=== PATIENT | female | born 1965 | race Caucasian/White ===

== ENCOUNTER 2016-10-02 11:12 | Emergency (ER) | payer SELFPAY ==
[~2016-10-02] VITALS: Ht 157.5 cm; Wt 52.0 kg
[2016-10-02 11:14] VITALS: BP 168/82; PULSE 73; RESP 20; TEMP 98.2; O2SAT 96
--- NOTE | 2016-10-02 12:18 | PD ---
HPI Chief Complaint: Medical Clearance Time Seen by Provider: 12:00 Travel History International Travel<30 days: No Contact w/Intl Traveler<30days: No Traveled to known affect area: No History of Present Illness HPI 51-year-old female presents emergency department for evaluation of right ear pain 1 week. Patient reports the pain is constant, nonradiating. No aggravating or alleviating factors. Symptoms severity mild. PFSH Past Medical History Medical History: Denies Significant Hx Diminished Hearing: No Tetanus Vaccination: > 5 Years Influenza Vaccination: No ?: Not Past Surgical History Surgical History: No Previous Surgery Social History Alcohol Use: Yes Tobacco Use: Yes (1/2PPD) Substance Use: Yes (Patient admits to substance abuse. ) Allergies-Medications (Allergen,Severity, Reaction): Coded Allergies: No Known Allergies (Verified , 10/02/16) Reported Meds & Prescriptions Reported Meds & Active Scripts Active Active Prescriptions or Reported Medications Unobtainable Review of Systems Except as stated in HPI: all other systems reviewed are Neg HENT: Positive: Earache Physical Exam Narrative GENERAL: Well-nourished, well-developed patient. SKIN: Focused skin assessment warm/dry. HEAD: Normocephalic. EYES: No scleral icterus. No injection or drainage. EAR: Right TM erythema, bulging, loss of landmarks. No mastoid tenderness or overlying erythema. NECK: Supple, trachea midline. No JVD or lymphadenopathy. CARDIOVASCULAR: Regular rate and rhythm without murmurs, gallops, or rubs. RESPIRATORY: Breath sounds equal bilaterally. No accessory muscle use. GASTROINTESTINAL: Abdomen soft, non-tender, nondistended. MUSCULOSKELETAL: No cyanosis, or edema. BACK: Nontender without obvious deformity. No CVA tenderness. Data Data Last Documented VS Vital Signs Date Time Temp Pulse Resp B/P Pulse Ox O2 Delivery O2 Flow Rate FiO2 10/02/16 11:14 98.2 73 20 168/82 96 Room Air MDM Medical Decision Making Medical Screen Exam Complete: Yes Emergency Medical Condition: Yes Differential Diagnosis Otitis media, otitis externa, URI Narrative Course 51-year-old female with chief complaint of right ear pain 1 week. On physical exam patient has right TM erythema, bulging, loss of landmarks. Patient be treated with amoxicillin. Return precautions discussed. Patient verbalizes understanding and agrees to plan. Diagnosis Primary Impression: Otitis media Qualified Code: H66.91 - Right otitis media, unspecified chronicity, unspecified otitis media type Referrals: Primary Care Physician Additional Instructions: Take the antibiotics as prescribed. Take [id number]-[id number] Motrin [id number] milligrams every 6-8 hours as needed for pain. Follow-up with her primary care doctor. Scripts Unable to Obtain Active Prescriptions or Reported Meds Disposition: 01 DISCHARGE HOME Condition: Stable Mahi Diez Oct 02, 2016 12:18
[2016-10-02] MEDS ORDERED: AMOX500T PO (12:45)
== END 2016-10-02 13:24 | disposition home or self-care (01) ==
LOC: NEPK 11:12
DX: H66.91 Otitis media, unspecified, right ear (principal); F17.200 Nicotine dependence, unspecified, uncomplicated
CPT/HCPCS: 99283

== ENCOUNTER 2017-01-27 07:48 | Emergency (ER) | payer SELFPAY ==
[~2017-01-27] VITALS: Ht 154.9 cm; Wt 51.0 kg
[~2017-01-27 07:48] MED LIST: AMOX500T PO
[2017-01-27 07:49] VITALS: BP 145/75; PULSE 76; RESP 19; TEMP 98; O2SAT 96
--- NOTE | 2017-01-27 08:26 | PD ---
HPI . Cold symptoms Chief Complaint: GI Complaint Time Seen by Provider: 08:05 Travel History International Travel<30 days: No Contact w/Intl Traveler<30days: No Traveled to known affect area: No History of Present Illness HPI This patient presents with a chief complaint of cold symptoms. Onset was 2 days ago. She is complaining with congestion, cough and now vomiting and loose stools. She reports 3 total episodes of emesis. She states that she has had some bloody sputum. She has not been running a fever. She states that she has taken [id number] cold preparations and aspirin without relief of her symptoms. PFSH Past Medical History Hx Anticoagulant Therapy: No Cardiovascular Problems: No Chemotherapy: No Cerebrovascular Accident: No Diabetes: No Diminished Hearing: No Respiratory: No Tetanus Vaccination: > 5 Years Influenza Vaccination: No ?: Not Menopausal: Yes : 2 Past Surgical History Section: Yes (X 2) Gynecologic Surgery: Yes () Hysterectomy: No Social History Alcohol Use: Yes Tobacco Use: Yes (1/2PPD) Substance Use: Yes (Patient admits to substance abuse. ) Allergies-Medications (Allergen,Severity, Reaction): Coded Allergies: No Known Allergies (Verified Adverse Reaction, Unknown, 01/27/17) Reported Meds & Prescriptions Reported Meds & Active Scripts Active No Active Prescriptions or Reported Medications Review of Systems Except as stated in HPI: all other systems reviewed are Neg General / Constitutional: No: Fever, Chills Eyes: No: Drainage, Redness HENT: Positive: Congestion Cardiovascular: Positive: Chest Pain or Discomfort Respiratory: Positive: Cough Gastrointestinal: Positive: Nausea, Vomiting, Diarrhea, Abdominal Pain Genitourinary: No: Urgency, Frequency, Dysuria Physical Exam Narrative Vital Signs Date Time Temp Pulse Resp B/P (MAP) Pulse Ox O2 Delivery O2 Flow Rate FiO2 01/27/17 07:59 18 01/27/17 07:49 98.0 76 19 145/75 (98) 96 Room Air GENERAL: This is a well-appearing woman. SKIN: warm/dry. Good color and good turgor. HEAD: Normocephalic. Atraumatic. EYES: Pupils equal and round. No scleral icterus. No injection or drainage. ENT: No nasal bleeding or discharge. Mucous membranes pink and moist. Oropharynx has no erythema. NECK: Trachea midline. Full range of motion without pain. No cervical lymphadenopathy. CARDIOVASCULAR: Regular rate and rhythm. Heart sounds are normal. RESPIRATORY: No accessory muscle use. Clear to auscultation. Breath sounds equal bilaterally. GASTROINTESTINAL: Abdomen soft. Nontender. Bowel sounds present. Nondistended. MUSCULOSKELETAL: No obvious deformities. NEUROLOGICAL: Awake and alert. No obvious cranial nerve deficits. Motor grossly within normal limits. Normal speech. PSYCHIATRIC: Appropriate mood and affect; insight and judgment normal. Data Data Last Documented VS Vital Signs Date Time Temp Pulse Resp B/P (MAP) Pulse Ox O2 Delivery O2 Flow Rate FiO2 01/27/17 07:59 18 01/27/17 07:49 98.0 76 145/75 (98) 96 Room Air Orders Orders Chest, Pa & Lat (01/27/17 08:06) Ondansetron Odt (Zofran Odt) (01/27/17 09:00) [facility] Medical Decision Making Medical Screen Exam Complete: Yes Emergency Medical Condition: Yes Differential Diagnosis Differential diagnosis includes but is not limited to influenza, upper respiratory infection, bronchitis, pneumonia Narrative Course This patient presents with the chief complaint of a cold. She also reports associated vomiting and diarrhea. Her physical exam is normal. She is not tachypneic or hypoxic. Lung sounds are normal. She is complaining with abdominal pain but has a soft abdomen. I will check a chest x-ray to rule out pneumonia. Based on her normal physical exam, no further workup is needed at this time. CXR>>No acute cardiopulmonary disease identified. The patient will be discharged home with instructions to use [id number] symptomatic treatment. I will give her prescription for Zofran for the vomiting. Diagnosis Primary Impression: Upper respiratory infection Qualified Codes: J06.9 - Acute upper respiratory infection, unspecified; B97.89 - Other viral agents as the cause of diseases classified elsewhere Additional Impression: Vomiting Qualified Codes: R11.2 - Nausea with vomiting, unspecified Patient Instructions: Acute Nausea and Vomiting (DC), General Instructions, Upper Respiratory Infection (DC) Additional Instructions: I recommend the use of a Neti Pot. You may use a nasal spray such as Afrin for up to 3 days as needed for nasal congestion. You may take an hfwf-eth-epidiih antihistamine such as Zyrtec, Janet or Claritin as needed for runny secretions. You may take pseudoephedrine as needed for congestion. You will need to sign for this at the pharmacy. You may take plain Mucinex, 1200 mg twice a day as needed for thick secretions. You may take a cough syrup such as Delsym as needed for cough. Motrin as needed for fever and body aches. Throat lozenges/sprays as needed for sore throat. Warm salt water gargles for sore throat. Hot tea with lemon and honey also helps soothe a sore throat. Med/Other Pt SpecificInfo: Prescription(s) given Scripts Ondansetron (Zofran) 4 Mg Tab 4 MG PO Q6HR Y for NAUSEA OR VOMITING, #10 TAB 0 Refills Prov: Elen Roldan MD 01/27/17 Disposition: 01 DISCHARGE HOME Condition: Stable Elen Roldan MD Jan 27, 2017 08:26
[2017-01-27] MEDS ORDERED: ONDANSETRON ODT 4 MG TAB PO ONE (09:00)
--- NOTE | 2017-01-27 09:26 | RADRPT ---
EXAM DATE/TIME: 01/27/2017 09:07 [place] COMPARISON: No previous studies available for comparison. INDICATIONS : Cough MEDICAL HISTORY : None. SURGICAL HISTORY : None. ENCOUNTER: Initial ACUITY: 1 day PAIN SCORE: 0/10 LOCATION: Bilateral chest FINDINGS: PA and lateral views of the chest. The lungs are clear. Cardiomediastinal silhouette within normal li mits. No evidence of pleural effusion or pneumothorax. CONCLUSION: No acute cardiopulmonary disease identified. Faraz Vela MD on January 27, 2017 at 9:24 Board Certified Radiologist. This report was verified electronically.
[2017-01-27] MEDS ORDERED: ZOFR4TAB PO (09:33)
== END 2017-01-27 09:45 | disposition home or self-care (01) ==
LOC: NEPC 07:48
DX: J06.9 Acute upper respiratory infection, unspecified (principal); R11.2 Nausea with vomiting, unspecified; Z72.0 Tobacco use
CPT/HCPCS: 71020; 99283